=== PATIENT | female | born 1950 | race Caucasian/White ===

== ENCOUNTER → 2016-10-31 | Outpatient (CLI) | payer OTHER ==
--- NOTE | 2016-10-31 12:46 | US ---
Bilateral Lower Extremity Ultrasound and Venous Duplex Doppler Study History: Pain. Comparison: Right lower extremity ultrasound October 05, 2010. Technique: High frequency transducer was used for imaging and Doppler study of the veins of the righ t and left lower extremities. Pulsed Doppler and color Doppler were utilized, along with various ma neuvers to assess flow in the veins. Findings: Right: The deep veins of the right lower extremity are normally compressible between the groin and th e upper calf. They have normal Doppler waveforms within them. No venous thrombosis is identified. Left: The deep veins of the left lower extremity are normally compressible between the groin and the upper calf. They have normal Doppler waveforms within them. No venous thrombus is identified. A compl ex 3.3 x 2.9 x 2.1 cm Epps's cyst is noted. Impression: 1. No evidence of deep vein thrombosis in the lower extremities. 2. 3.3 cm complex left Epps's cyst. Message left with Chikis Day today at 1208 hours.
== END ==
LOC: FIMAGING 11:02
DX: M71.22 Synovial cyst of popliteal space [Baker], left knee (principal); M79.604 Pain in right leg; M79.605 Pain in left leg